=== PATIENT | male | born 1945 | race Caucasian/White ===

== ENCOUNTER 2016-04-18 12:06 | Emergency (ER) | payer OTHER ==
[~2016-04-18] VITALS: Ht 185.4 cm; Wt 88.5 kg
[2016-04-18 13:58] LABS: Hematocrit 46.6 % (41.0-53.0); Hemoglobin 14.9 g/dL (13.5-17.5); Mean Corpuscular Hemoglobin 31.3 pg (28.0-32.0); Mean Corpuscular Hgb Conc. 32.1 g/dL (32.0-36.0); Mean Corpuscular Volume 97.4 fL (80.0-100.0); Mean Platelet Volume 11.9 fL (7.4-10.4); Platelet Count (auto) 223 10^3/uL (140-450); Red Cell Distribution Width 14.9 % (11.6-16.0); SUSPECT VIEW TRANSMISSION; White Blood Cell 28.3 10^3/uL (4.4-10.8)
[2016-04-18] MEDS ORDERED: KETOROLAC TROMETH 60MG/2ML VIAL IM ONE (14:00)
[2016-04-18 14:13] LABS: Metamyelocytes % 0; Myelocytes % 0; Promyelocytes % 0; Reactive Lymphocytes 0
[2016-04-18] MEDS ORDERED: PIPERACILLIN-TAZOB 3.375GM 100 ML IV ONE (15:30)
[2016-04-18] MEDS ORDERED: VANCOMYCIN 1GM/250ML D5W 250 ML IV ONE (15:30)
[2016-04-18 15:43] LABS: Calcium 9.4 mg/dL (8.5-10.1); Potassium 4.7 mmol/L (3.5-5.1)
[2016-04-18 15:46] LABS: BUN/Creatinine Ratio 13.2; Bilirubin, Total 2.8 mg/dL (0.2-1.0); Total Protein 9.9 g/dL (6.4-8.2)
[2016-04-18] MEDS ORDERED: InsuLIN REG 1unit/0.01ml Soln (100units/ml) ONE (15:52)
[2016-04-18] MEDS ORDERED: InsuLIN REG 1unit/0.01ml Soln (100units/ml) IV ONE ×2 (16:00→22:30)
[2016-04-18 16:04] LABS: Lactic Acid 4.1 mmol/L (0.4-2.0)
[2016-04-18] MEDS ORDERED: ONDANSETRON HCL 4 MG/2 ML VIAL ONE (16:08)
[2016-04-18 16:11] LABS: REFLEX LACTIC ACID YES OR NO YES
[2016-04-18] MEDS ORDERED: MORPHINE SULF INJ 2 MG/ML SYRINGE 1ML IV ONE (16:15)
[2016-04-18] MEDS ORDERED: ONDANSETRON HCL 4 MG/2 ML VIAL IV ONE (16:15)
[2016-04-18] MEDS ORDERED: SODIUM CHLORIDE 0.9% 2,000 ML IV ONE (16:15)
[2016-04-18 17:14] LABS: Platelet Estimate Adequate
[2016-04-18 17:43] LABS: Lactic Acid 4.5 mmol/L (0.4-2.0)
[2016-04-18 17:45] LABS: REFLEX LACTIC ACID YES OR NO NO
[2016-04-18] MEDS ORDERED: SODIUM CHLORIDE 0.9% 1,000 ML IV ONE (21:00)
[2016-04-18 23:13] VITALS: BP 122/63
== END 2016-04-18 23:30 | disposition short-term general hospital (02) ==
LOC: EDBD 12:06 → EDUNIT# 12:06 → ER 12:08
DX: S42.211A Unspecified displaced fracture of surgical neck of right humerus, initial encounter for closed fracture (principal); A41.9 Sepsis, unspecified organism; R94.5 Abnormal results of liver function studies; E87.1 Hypo-osmolality and hyponatremia; E87.2 Acidosis; E11.621 Type 2 diabetes mellitus with foot ulcer; L97.509 Non-pressure chronic ulcer of other part of unspecified foot with unspecified severity; F17.210 Nicotine dependence, cigarettes, uncomplicated; F12.10 Cannabis abuse, uncomplicated; F15.10 Other stimulant abuse, uncomplicated; I10 Essential (primary) hypertension; Z90.89 Acquired absence of other organs; W19.XXXA Unspecified fall, initial encounter; Y93.89 Activity, other specified; Y99.8 Other external cause status; Y92.89 Other specified places as the place of occurrence of the external cause
CPT/HCPCS: 36415; 71010; 73030; 73502; 80053; 80320; 82010; 83605; 84484; 85007; 85027; 87040; 87205; 93005; 96361; 96365; 96366; 96368; 96372; 96375; 96376; 99291; J1815; J1885; J2270; J2405; J2543; J3370; J7030; 87077; 87186

== ENCOUNTER 2018-03-26 13:04 | Inpatient (IN) | payer OTHER ==
[~2018-03-26] VITALS: Ht 182.9 cm; Wt 78.5 kg
[~2018-03-26 13:04] MED LIST: ATOR10TA52 PO; INSU70IN3 SC; METF-370 PO; MORP15TA PO
[2018-03-26 13:56] LABS: Basophils # (auto) 0.1 uL; Basophils % (auto) 1.3 % (0.0-2.0); Eosinophils # (auto) 0.2 uL; Eosinophils % (auto) 2.1 % (0.0-7.0); Hematocrit 40.5 % (41.0-53.0); Hemoglobin 13.7 g/dL (13.5-17.5); Lymphocytes # (auto) 1.9 uL; Lymphocytes % (auto) 20.3 % (10.0-50.0); Mean Corpuscular Hgb Conc. 33.7 g/dL (32.0-36.0); Mean Corpuscular Volume 100.9 fL (80.0-100.0); Monocytes # (auto) 1.1 uL; Monocytes % (auto) 11.8 % (0.0-12.0); Neutrophils # (auto) 6.1 uL; Neutrophils % (auto) 64.5 % (37.0-80.0); Platelet Count (auto) 160 10^3/uL (140-450); Red Blood Cells 4.01 10^6/uL (4.5-5.90); Red Cell Distribution Width 12.4 % (11.8-14.3); White Blood Cell 9.5 10^3/uL (4.4-10.8)
[2018-03-26 14:10] LABS: INR 1.01 (0.9-1.15); Partial Thromboplastin Time 27.2 sec (23.78-33.04); Prothrombin Time 10.8 sec (9.27-12.13)
[2018-03-26 14:11] LABS: Albumin 2.8 g/dL (3.4-5.0); BUN/Creatinine Ratio 15.9; Calcium 8.4 mg/dL (8.5-10.1); Potassium 3.5 mmol/L (3.5-5.1)
[2018-03-26 14:21] LABS: Bilirubin, Total 0.6 mg/dL (0.2-1.0); Total Protein 8.8 g/dL (6.4-8.2)
[2018-03-26] MEDS ORDERED: DEXTROSE (50%) 50ML SYRG IV PRN (16:30)
[2018-03-26] MEDS ORDERED: MORPHINE SULFATE 4 MG/ML SYR/VIAL IV PRN (16:30)
[2018-03-26] MEDS ORDERED: NITROGLYCERIN 0.4 MG SL TAB SL PRN (16:30)
[2018-03-26] MEDS ORDERED: ONDANSETRON HCL 4 MG/2 ML VIAL IV PRN (16:30)
[2018-03-26] MEDS: CLINDAMYCIN 600MG IV 50 ML IV SCH (17:27)
[2018-03-26] MEDS: ACCU-CHEK COMFORT CURVE STRIP VI SCH ×2 (17:33→21:30)
[2018-03-26] MEDS: InsuLIN REG 1unit/0.01ml Soln (100units/ml) SC SCH ×2 (17:37→21:33)
[2018-03-26] MEDS: APIXABAN 5 MG TAB PO SCH (21:28)
[2018-03-26] MEDS: HYDROcodone-ACET 5/325MG TAB PO PRN (21:29)
[2018-03-26] MEDS: METOPROLOL TARTRATE 25 MG TAB PO SCH (21:30)
[2018-03-26 22:00] VITALS: BP 156/59
[2018-03-26] MEDS: MORPHINE SULFATE 4 MG/ML SYR/VIAL IV PRN (23:43)
[2018-03-27] MEDS: CLINDAMYCIN 600MG IV 50 ML IV SCH ×3 (01:59→16:54)
[2018-03-27] MEDS: MORPHINE SULFATE 4 MG/ML SYR/VIAL IV PRN ×3 (02:00→16:55)
[2018-03-27 05:00] VITALS: BP 116/60
[2018-03-27] MEDS: InsuLIN REG 1unit/0.01ml Soln (100units/ml) SC SCH ×4 (06:21→21:37)
[2018-03-27] MEDS: ACCU-CHEK COMFORT CURVE STRIP VI SCH ×4 (06:21→21:34)
[2018-03-27 06:35] LABS: Basophils # (auto) 0.1 uL; Eosinophils # (auto) 0.2 uL; Hemoglobin 11.2 g/dL (13.5-17.5); Neutrophils # (auto) 4.2 uL; Red Blood Cells 3.24 10^6/uL (4.5-5.90); Red Cell Distribution Width 12.1 % (11.8-14.3)
[2018-03-27 06:38] LABS: Basophils % (auto) 1.6 % (0.0-2.0); Eosinophils % (auto) 3.3 % (0.0-7.0); Hematocrit 32.5 % (41.0-53.0); Mean Corpuscular Hemoglobin 34.5 pg (28.0-32.0); Mean Corpuscular Hgb Conc. 34.4 g/dL (32.0-36.0); Mean Corpuscular Volume 100.3 fL (80.0-100.0); Monocytes % (auto) 12.9 % (0.0-12.0); Neutrophils % (auto) 55.2 % (37.0-80.0); Nucleated Red Blood Cells % 0.1 %; Platelet Count (auto) 136 10^3/uL (140-450); White Blood Cell 7.5 10^3/uL (4.4-10.8)
[2018-03-27 06:44] LABS: BUN/Creatinine Ratio 18.9; Potassium 3.3 mmol/L (3.5-5.1)
[2018-03-27] MEDS: HYDROcodone-ACET 5/325MG TAB PO PRN (08:30)
[2018-03-27 09:00] VITALS: BP 100/50
[2018-03-27] MEDS: APIXABAN 5 MG TAB PO SCH ×2 (10:58→21:33)
[2018-03-27] MEDS: METOPROLOL TARTRATE 25 MG TAB PO SCH ×2 (10:58→21:33)
[2018-03-27 13:00] VITALS: BP 116/61
[2018-03-27] MEDS ORDERED: CLOPIDOGREL BISULFATE 75 MG TAB PO ONE (13:15)
[2018-03-27] MEDS ORDERED: ASPirin 81 mg TAB PO ONE (13:15)
[2018-03-27 16:53] VITALS: BP 120/55
[2018-03-27 22:00] VITALS: BP 126/64
[2018-03-28] MEDS: CLINDAMYCIN 600MG IV 50 ML IV SCH ×4 (01:04→23:52)
[2018-03-28 05:00] VITALS: BP 100/59
[2018-03-28] MEDS: ACCU-CHEK COMFORT CURVE STRIP VI SCH ×4 (06:56→21:56)
[2018-03-28] MEDS: InsuLIN REG 1unit/0.01ml Soln (100units/ml) SC SCH ×4 (06:56→21:59)
[2018-03-28 08:30] VITALS: BP 139/66
[2018-03-28] MEDS: APIXABAN 5 MG TAB PO SCH ×2 (09:07→21:55)
[2018-03-28] MEDS: ASPirin 81 mg TAB PO SCH (09:07)
[2018-03-28] MEDS: METOPROLOL TARTRATE 25 MG TAB PO SCH ×2 (09:07→21:55)
[2018-03-28] MEDS: CLOPIDOGREL BISULFATE 75 MG TAB PO SCH (09:08)
[2018-03-28] MEDS: MORPHINE SULFATE 4 MG/ML SYR/VIAL IV PRN (09:28)
[2018-03-28] MEDS ORDERED: FUROSEMIDE 20 MG/2 ML VIAL IV ONE ×2 (10:15→13:00)
[2018-03-28] MEDS ORDERED: LORazepam 0.5 MG TAB PO ONE (10:45)
[2018-03-28] MEDS: PIPERACILLIN-TAZOB 3.375GM 100 ML IV SCH ×2 (12:14→18:43)
[2018-03-28 12:58] VITALS: BP 117/47
[2018-03-28] MEDS ORDERED: IOHEXOL 350 MG/ML 100ML IJ ONE (15:19)
[2018-03-28 17:10] VITALS: BP 119/64
[2018-03-28] MEDS: HYDROcodone-ACET 5/325MG TAB PO PRN (20:02)
[2018-03-28 21:57] VITALS: BP 101/51
[2018-03-29] MEDS: PIPERACILLIN-TAZOB 3.375GM 100 ML IV SCH ×5 (00:58→23:26)
[2018-03-29 05:10] VITALS: BP 114/80
[2018-03-29] MEDS: InsuLIN REG 1unit/0.01ml Soln (100units/ml) SC SCH ×4 (05:52→22:30)
[2018-03-29] MEDS: ACCU-CHEK COMFORT CURVE STRIP VI SCH ×4 (05:53→22:28)
[2018-03-29 08:30] VITALS: BP 117/51
[2018-03-29] MEDS: METOPROLOL TARTRATE 25 MG TAB PO SCH ×2 (10:00→22:16)
[2018-03-29] MEDS: ASPirin 81 mg TAB PO SCH (10:14)
[2018-03-29] MEDS: FUROSEMIDE 40 MG/4 ML VIAL IV SCH (10:15)
[2018-03-29] MEDS: APIXABAN 5 MG TAB PO SCH ×2 (10:15→22:15)
[2018-03-29] MEDS: CLOPIDOGREL BISULFATE 75 MG TAB PO SCH (10:15)
[2018-03-29] MEDS: CLINDAMYCIN 600MG IV 50 ML IV SCH ×2 (10:16→18:04)
[2018-03-29] MEDS: MORPHINE SULFATE 4 MG/ML SYR/VIAL IV PRN ×3 (10:54→23:18)
[2018-03-29 12:30] VITALS: BP 134/76
[2018-03-29] MEDS: HYDROcodone-ACET 5/325MG TAB PO PRN ×2 (12:40→19:57)
[2018-03-29 16:53] VITALS: BP 130/65
[2018-03-29 22:00] VITALS: BP 126/60
[2018-03-29] MEDS: ACETAMINOPHEN 500 MG TAB PO PRN (22:14)
[2018-03-29] MEDS: ASCORBIC ACID 500 MG TAB PO SCH (22:15)
[2018-03-29] MEDS ORDERED: ALBUTEROL SULF 2.5 MG/0.5ML(0.5%) NEB SOLN NEB PRN (22:30)
[2018-03-29] MEDS ORDERED: GABAPENTIN 100 MG CAP PO ONE (23:00)
[2018-03-29] MEDS ORDERED: guaiFENesin-DM 100/10mg/5ml SYR PO ONE (23:00)
[2018-03-29 23:12] VITALS: BP 123/76
[2018-03-30] MEDS: CLINDAMYCIN 600MG IV 50 ML IV SCH ×3 (02:29→16:50)
[2018-03-30] MEDS: HYDROcodone-ACET 5/325MG TAB PO PRN ×4 (02:43→22:11)
[2018-03-30 05:00] VITALS: BP 109/56
[2018-03-30] MEDS: PIPERACILLIN-TAZOB 3.375GM 100 ML IV SCH ×4 (05:11→23:06)
[2018-03-30] MEDS: MORPHINE SULFATE 4 MG/ML SYR/VIAL IV PRN ×3 (05:11→18:56)
[2018-03-30 06:03] LABS: Basophils # (auto) 0.1 uL; Basophils % (auto) 1.1 % (0.0-2.0); Eosinophils # (auto) 0.5 uL; Eosinophils % (auto) 7.3 % (0.0-7.0); Hematocrit 37.4 % (41.0-53.0); Hemoglobin 12.7 g/dL (13.5-17.5); Lymphocytes # (auto) 1.5 uL; Lymphocytes % (auto) 20.2 % (10.0-50.0); Mean Corpuscular Hemoglobin 34.2 pg (28.0-32.0); Mean Corpuscular Hgb Conc. 33.9 g/dL (32.0-36.0); Mean Corpuscular Volume 100.9 fL (80.0-100.0); Monocytes # (auto) 0.9 uL; Monocytes % (auto) 12.4 % (0.0-12.0); Neutrophils # (auto) 4.4 uL; Platelet Count (auto) 155 10^3/uL (140-450); Red Blood Cells 3.71 10^6/uL (4.5-5.90); Red Cell Distribution Width 12.4 % (11.8-14.3); White Blood Cell 7.4 10^3/uL (4.4-10.8)
[2018-03-30] MEDS: ACCU-CHEK COMFORT CURVE STRIP VI SCH ×4 (06:11→22:10)
[2018-03-30 06:18] LABS: INR 1.13 (0.9-1.15); Partial Thromboplastin Time 29.2 sec (23.78-33.04)
[2018-03-30 06:22] LABS: Albumin 2.3 g/dL (3.4-5.0); Calcium 7.8 mg/dL (8.5-10.1); Potassium 3.1 mmol/L (3.5-5.1)
[2018-03-30] MEDS: InsuLIN REG 1unit/0.01ml Soln (100units/ml) SC SCH ×4 (06:24→22:10)
[2018-03-30 06:26] LABS: BUN/Creatinine Ratio 21.9; Bilirubin, Total 0.7 mg/dL (0.2-1.0); Total Protein 7.3 g/dL (6.4-8.2)
[2018-03-30] MEDS: ACETAMINOPHEN 500 MG TAB PO PRN (06:38)
[2018-03-30] MEDS ORDERED: POTASSIUM CHL 20 Meq TABLET PO ONE (08:00)
[2018-03-30 08:35] VITALS: BP 132/73
[2018-03-30] MEDS: FUROSEMIDE 40 MG/4 ML VIAL IV SCH (10:10)
[2018-03-30] MEDS: METOPROLOL TARTRATE 25 MG TAB PO SCH ×2 (10:11→22:09)
[2018-03-30] MEDS: CLOPIDOGREL BISULFATE 75 MG TAB PO SCH (10:12)
[2018-03-30] MEDS: APIXABAN 5 MG TAB PO SCH ×2 (10:12→22:08)
[2018-03-30] MEDS: MULTIPLE VITAMINS W/ MINERALS TAB PO SCH (10:12)
[2018-03-30] MEDS: ASCORBIC ACID 500 MG TAB PO SCH ×2 (10:12→22:10)
[2018-03-30] MEDS: ASPirin 81 mg TAB PO SCH (10:12)
[2018-03-30 12:50] VITALS: BP 117/55
[2018-03-30 16:31] VITALS: BP 127/57
[2018-03-30 22:00] VITALS: BP 146/103
[2018-03-30] MEDS: GABAPENTIN 100 MG CAP PO SCH (22:09)
[2018-03-31] MEDS: CLINDAMYCIN 600MG IV 50 ML IV SCH ×3 (01:30→14:02)
[2018-03-31] MEDS: MORPHINE SULFATE 4 MG/ML SYR/VIAL IV PRN ×3 (01:31→18:13)
[2018-03-31 05:00] VITALS: BP 119/69
[2018-03-31] MEDS: PIPERACILLIN-TAZOB 3.375GM 100 ML IV SCH ×4 (05:44→23:01)
[2018-03-31] MEDS: InsuLIN REG 1unit/0.01ml Soln (100units/ml) SC SCH ×4 (06:11→21:49)
[2018-03-31] MEDS: ACCU-CHEK COMFORT CURVE STRIP VI SCH ×4 (06:11→21:49)
[2018-03-31] MEDS: HYDROcodone-ACET 5/325MG TAB PO PRN ×3 (06:12→20:07)
[2018-03-31 08:00] VITALS: BP 126/75
[2018-03-31] MEDS: MULTIPLE VITAMINS W/ MINERALS TAB PO SCH (09:12)
[2018-03-31] MEDS: GABAPENTIN 100 MG CAP PO SCH ×2 (09:12→21:48)
[2018-03-31] MEDS: FUROSEMIDE 40 MG/4 ML VIAL IV SCH (09:12)
[2018-03-31] MEDS: APIXABAN 5 MG TAB PO SCH ×2 (09:13→21:47)
[2018-03-31] MEDS: ASPirin 81 mg TAB PO SCH (09:13)
[2018-03-31] MEDS: ASCORBIC ACID 500 MG TAB PO SCH ×2 (09:13→21:49)
[2018-03-31] MEDS: CLOPIDOGREL BISULFATE 75 MG TAB PO SCH (09:13)
[2018-03-31] MEDS: METOPROLOL TARTRATE 25 MG TAB PO SCH ×2 (10:00→21:48)
[2018-03-31 12:23] VITALS: BP 123/65
[2018-03-31 16:30] VITALS: BP 131/71
[2018-03-31 21:58] VITALS: BP 109/43
[2018-04-01] MEDS: CLINDAMYCIN 600MG IV 50 ML IV SCH ×3 (01:23→17:15)
[2018-04-01] MEDS: MORPHINE SULFATE 4 MG/ML SYR/VIAL IV PRN ×2 (04:41→11:27)
[2018-04-01 04:50] VITALS: BP 122/77
[2018-04-01] MEDS: PIPERACILLIN-TAZOB 3.375GM 100 ML IV SCH ×4 (05:25→23:44)
[2018-04-01] MEDS: InsuLIN REG 1unit/0.01ml Soln (100units/ml) SC SCH ×4 (06:26→22:11)
[2018-04-01] MEDS: ACCU-CHEK COMFORT CURVE STRIP VI SCH ×4 (06:26→22:11)
[2018-04-01 08:48] VITALS: BP 131/54
[2018-04-01] MEDS: METOPROLOL TARTRATE 25 MG TAB PO SCH ×2 (10:00→22:10)
[2018-04-01] MEDS: ASPirin 81 mg TAB PO SCH ×2 (10:00→11:00)
[2018-04-01] MEDS: APIXABAN 5 MG TAB PO SCH ×3 (10:00→22:10)
[2018-04-01] MEDS: CLOPIDOGREL BISULFATE 75 MG TAB PO SCH ×2 (10:00→11:00)
[2018-04-01] MEDS: FUROSEMIDE 40 MG/4 ML VIAL IV SCH (10:58)
[2018-04-01] MEDS: GABAPENTIN 100 MG CAP PO SCH ×2 (10:59→22:11)
[2018-04-01] MEDS: ASCORBIC ACID 500 MG TAB PO SCH ×2 (11:00→22:11)
[2018-04-01] MEDS: MULTIPLE VITAMINS W/ MINERALS TAB PO SCH (11:00)
[2018-04-01 13:00] VITALS: BP 144/61
[2018-04-01] MEDS: HYDROcodone-ACET 5/325MG TAB PO PRN (13:18)
[2018-04-01] MEDS ORDERED: IODIXANOL 320MG/ML 100ML BTL IV ONE (13:33)
[2018-04-01] MEDS ORDERED: LIDOCAINE 2%HCL (LOCAL ANESTH.) INJ 20ML MDV ONE (13:33)
[2018-04-01] MEDS ORDERED: ANGIOMAX 250 MG VIAL IV ONE (13:36)
[2018-04-01] MEDS ORDERED: fentaNYL CITRATE 100 MCG/2 ML VL ONE (13:36)
[2018-04-01] MEDS ORDERED: MIDAZOLAM HCL 1MG/1ML-2 ML VIAL ONE (13:37)
[2018-04-01] MEDS ORDERED: SODIUM CHL 0.9% 50 ML ONE (13:37)
[2018-04-01 16:35] VITALS: BP 134/65
[2018-04-01 22:00] VITALS: BP 146/79
[2018-04-02] MEDS: MORPHINE SULFATE 4 MG/ML SYR/VIAL IV PRN (00:22)
[2018-04-02] MEDS: CLINDAMYCIN 600MG IV 50 ML IV SCH ×3 (02:21→16:49)
[2018-04-02 03:01] VITALS: BP 134/65
[2018-04-02] MEDS: HYDROcodone-ACET 5/325MG TAB PO PRN ×2 (05:04→21:13)
[2018-04-02] MEDS ORDERED: THROAT LOZENGES(CEPASTAT) MT PRN (05:15)
[2018-04-02 05:24] VITALS: BP 128/65
[2018-04-02] MEDS: PIPERACILLIN-TAZOB 3.375GM 100 ML IV SCH ×3 (05:54→18:00)
[2018-04-02] MEDS: InsuLIN REG 1unit/0.01ml Soln (100units/ml) SC SCH ×4 (06:12→21:14)
[2018-04-02] MEDS: ACCU-CHEK COMFORT CURVE STRIP VI SCH ×4 (06:13→21:13)
[2018-04-02 08:47] VITALS: BP 143/67
[2018-04-02] MEDS: FUROSEMIDE 40 MG/4 ML VIAL IV SCH ×2 (10:00→10:37)
[2018-04-02] MEDS: METOPROLOL TARTRATE 25 MG TAB PO SCH ×2 (10:00→21:09)
[2018-04-02] MEDS: ASPirin 81 mg TAB PO SCH (10:37)
[2018-04-02] MEDS: GABAPENTIN 100 MG CAP PO SCH ×2 (10:37→21:10)
[2018-04-02] MEDS: CLOPIDOGREL BISULFATE 75 MG TAB PO SCH (10:37)
[2018-04-02] MEDS: MULTIPLE VITAMINS W/ MINERALS TAB PO SCH (10:37)
[2018-04-02] MEDS: APIXABAN 5 MG TAB PO SCH ×2 (10:37→21:10)
[2018-04-02] MEDS: ASCORBIC ACID 500 MG TAB PO SCH ×2 (10:37→21:09)
[2018-04-02 12:14] VITALS: BP 143/67
[2018-04-02] MEDS ORDERED: INSREG3 SC (12:23)
[2018-04-02] MEDS ORDERED: CLIN1CAP4 PO (12:23)
[2018-04-02] MEDS ORDERED: NAP500T PO (12:23)
[2018-04-02] MEDS ORDERED: MORP30TA PO (12:23)
[2018-04-02] MEDS ORDERED: INS7030I SC (12:23)
[2018-04-02] MEDS ORDERED: OME20T PO (12:23)
[2018-04-02 12:51] VITALS: BP 136/57
[2018-04-02] MEDS: ACETAMINOPHEN 500 MG TAB PO PRN (21:09)
[2018-04-02 22:00] VITALS: BP 139/54
== END 2018-04-02 22:15 | disposition home or self-care (01) | DRG 252 ==
LOC: ER 13:04 → TELE 16:26 → TELE-CENTR 18:00
PROVIDERS: ADMIT Nurse Practitioner Acute Care; ATTEND Family Medicine
PROC: 047M3ZZ Dilation of Right Popliteal Artery, Percutaneous Approach (ICD-10-PCS; principal; 2018-04-01)
PROC: 047R3ZZ Dilation of Right Posterior Tibial Artery, Percutaneous Approach (ICD-10-PCS; 2018-04-01)
PROC: B41G1ZZ Fluoroscopy of Left Lower Extremity Arteries using Low Osmolar Contrast (ICD-10-PCS; 2018-04-01)
PROC: B41F1ZZ Fluoroscopy of Right Lower Extremity Arteries using Low Osmolar Contrast (ICD-10-PCS; 2018-04-01)
DX: E11.51 Type 2 diabetes mellitus with diabetic peripheral angiopathy without gangrene (principal); J18.9 Pneumonia, unspecified organism; L97.919 Non-pressure chronic ulcer of unspecified part of right lower leg with unspecified severity; L03.115 Cellulitis of right lower limb; D68.59 Other primary thrombophilia; E87.1 Hypo-osmolality and hyponatremia; L03.116 Cellulitis of left lower limb; E11.622 Type 2 diabetes mellitus with other skin ulcer; I70.291 Other atherosclerosis of native arteries of extremities, right leg; D64.9 Anemia, unspecified; E78.00 Pure hypercholesterolemia, unspecified; E78.5 Hyperlipidemia, unspecified; E87.6 Hypokalemia; F17.210 Nicotine dependence, cigarettes, uncomplicated; Z96.642 Presence of left artificial hip joint; I48.91 Unspecified atrial fibrillation; I50.9 Heart failure, unspecified; E11.21 Type 2 diabetes mellitus with diabetic nephropathy; I11.0 Hypertensive heart disease with heart failure; E11.65 Type 2 diabetes mellitus with hyperglycemia; I08.0 Rheumatic disorders of both mitral and aortic valves; I70.0 Atherosclerosis of aorta; Z79.4 Long term (current) use of insulin; Z79.899 Other long term (current) drug therapy; Z79.84 Long term (current) use of oral hypoglycemic drugs; Z82.49 Family history of ischemic heart disease and other diseases of the circulatory system; Z80.3 Family history of malignant neoplasm of breast; Z90.89 Acquired absence of other organs; Z90.49 Acquired absence of other specified parts of digestive tract
CPT/HCPCS: 36415; 36600; 71045; 71275; 73700; 80048; 80053; 82805; 82962; 83036; 83880; 85025; 85379; 85610; 85730; 86850; 86900; 86901; 87040; 87081; 87205; 93005; 93306; 93926; 93970; 96372; 99152; A6257; G0378; J1815; J2250; J2543; J3490; Q9967